=== PATIENT | male | born 1985 | race Caucasian/White ===

== ENCOUNTER 2024-07-21 00:02 | Inpatient (IN) | payer SELFPAY ==
[~2024-07-21] VITALS: Ht 167.6 cm; Wt 81.4 kg
[2024-07-21 00:30] LABS: BASOPHILS % 1.1 % (0.0-2.0); HEMATOCRIT. 34.5 % (42.0-52.0); HEMOGLOBIN. 11.2 g/dL (14.0-18.0); LYMPHOCYTES % 47.4 % (20.0-50.0); MEAN CORPUSCULAR HGB CONC 32.6 g/dL (31.0-37.0); MEAN CORPUSCULAR VOLUME 79.8 fL (80.0-94.0); MEAN PLATELET VOLUME 7.7 fl (7.4-10.4); MONOCYTES % 6.3 % (2.0-8.0); NEUTROPHILS % 44.2 % (40.0-76.0); PLATELET 467 x1000/uL (130-400); RED BLOOD CELL COUNT 4.32 mill/uL (4.7-6.1); RED CELL DISTRIBUTION WIDTH 15.1 % (11.6-14.6); WHITE BLOOD COUNT 7.4 x1000/uL (4.5-11.0)
[2024-07-21 00:31] LABS: DIFFERENTIAL COMMENT 1
[2024-07-21 00:34] LABS: CHLORIDE 110 mEq/L (98-107); POTASSIUM 3.8 mEq/L (3.5-5.1); SODIUM 143 mEq/L (136-145)
[2024-07-21 00:35] LABS: CARBON DIOXIDE 21 mEq/L (21-32)
[2024-07-21 00:36] LABS: CALCIUM 9.1 mg/dL (8.7-10.4)
[2024-07-21 00:39] LABS: PARTIAL THROMBOPLASTIN TIME 26.5 sec (23.4-31.0); PROTHROMBIN TIME 10.8 sec (9.6-11.0)
[2024-07-21 00:40] LABS: CREATININE 0.9 mg/dL (0.6-1.3); GLUCOSE 104 mg/dL (70-105); UREA NITROGEN BLOOD 8 mg/dL (9-23)
[2024-07-21 00:41] LABS: TROPONIN I HIGH SENSITIVITY 4 ng/L (3.0-53)
[2024-07-21] MEDS: ASPIRIN 325MG EC TABLET PO ONE (00:56)
[2024-07-21 02:36] LABS: ETHANOL BLOOD 185 mg/dL (<10)
[2024-07-21 02:37] LABS: TROPONIN I HIGH SENSITIVITY 4 ng/L (3.0-53)
[2024-07-21] MEDS ORDERED: ACETAMINOPHEN 325MG TABLET PO PRN (09:00)
[2024-07-21] MEDS ORDERED: CLONIDINE 0.1MG TABLET PO PRN (09:00)
[2024-07-21] MEDS ORDERED: ONDANSETRON HCL 4MG/2ML INJ IV PRN (09:00)
[2024-07-21] MEDS ORDERED: MAGNESIUM/ALUMINUM HYDROXIDE/SIMETHICONE 30ML UDC PO PRN (09:00)
[2024-07-21] MEDS: PANTOPRAZOLE SODIUM 40 MG/VIAL IV SCH (09:25)
[2024-07-21] MEDS: ENOXAPARIN 40MG/0.4ML SYR SUBCUT SCH (09:26)
[2024-07-21] MEDS: MVI, ADULT NO.1 10 ML, FOLIC ACID 1 MG, THIAMINE HCL 100 MG in SODIUM CHLORIDE 0.9% 1,0... IV SCH (10:00)
[2024-07-21 12:00] VITALS: BP 125/80; PULSE 61; RESP 20; TEMP 36.55848; O2SAT 97
[2024-07-21 15:19] VITALS: BP 125/80; PULSE 61; RESP 20; TEMP 36.5848
[2024-07-21 16:00] VITALS: BP 131/78; PULSE 62; RESP 20; TEMP 36.28068; O2SAT 98
[2024-07-21] MEDS: KETOROLAC 30MG/ML VIAL IV SCH (16:21)
[2024-07-21 16:28] VITALS: BP 131/78; PULSE 62; RESP 18; TEMP 36.28068; O2SAT 98
[2024-07-21 18:53] LABS: CREATINE KINASE MB FRACTION 1.4 ng/mL (0.5-3.6)
[2024-07-21 20:00] VITALS: BP 122/72; PULSE 62; RESP 20; TEMP 36.83628; O2SAT 97
[2024-07-21] MEDS ORDERED: ZOLPIDEM TARTRATE 5MG TABLET PO PRN (21:00)
[2024-07-21 21:03] LABS: CLARITY URINE CLEAR (CLEAR); COLOR URINE YELLOW (YELLOW); GLUCOSE URINE NEGATIVE (NEGATIVE); KETONES URINE NEGATIVE (NEGATIVE); LEUKOCYTE ESTERASE URINE NEGATIVE (NEGATIVE); NITRITE URINE NEGATIVE (NEGATIVE); OCCULT BLOOD URINE NEGATIVE (NEGATIVE); PH URINE 7.5 (4.5-8.0); PROTEIN URINE TRACE (NEGATIVE); SPECIFIC GRAVITY URINE 1.025 (1.005-1.030)
[2024-07-21 21:17] LABS: *AMPHETAMINES SCREEN URINE NEGATIVE (NEGATIVE)
[2024-07-21 21:18] LABS: *BARBITURATES SCREEN URINE NEGATIVE (NEGATIVE); *BENZODIAZEPINES SCREEN URINE NEGATIVE (NEGATIVE); *COCAINE SCREEN URINE PRESUMPTIVE POSITIVE (NEGATIVE); CANNABINOID URINE SCREEN PRESUMPTIVE POSITIVE (NEGATIVE); ECSTASY MDMA SCREEN URINE NEGATIVE (NEGATIVE); METHADONE URINE SCREEN NEGATIVE (NEGATIVE); OPIATES URINE SCREEN NEGATIVE (NEGATIVE); PHENCYCLIDINE URINE SCREEN NEGATIVE (NEGATIVE)
[2024-07-21 21:39] LABS: BACTERIA URINE 1+; RBC URINE NONE SEEN /hpf (0-2); SQUAMOUS EPITHELIAL CELL URINE RARE /lpf (RARE/1+); WBC URINE 0-2 /hpf (0-2)
[2024-07-21 23:54] LABS: CREATINE KINASE MB FRACTION 1.1 ng/mL (0.5-3.6)
[2024-07-22] VITALS: BP 137/86; PULSE 67; RESP 18; TEMP 36.9474; O2SAT 98
[2024-07-22 04:00] VITALS: BP 120/80; PULSE 65; RESP 18; TEMP 37.16964; O2SAT 99
[2024-07-22 07:59] VITALS: BP 125/78; PULSE 68; RESP 18; TEMP 36.33624; O2SAT 100
[2024-07-22 08:14] LABS: CALCIUM 9.5 mg/dL (8.7-10.4); CHLORIDE 106 mEq/L (98-107); POTASSIUM 4.2 mEq/L (3.5-5.1); SODIUM 138 mEq/L (136-145)
[2024-07-22 08:15] LABS: CARBON DIOXIDE 22 mEq/L (21-32)
[2024-07-22 08:20] LABS: CREATININE 0.8 mg/dL (0.6-1.3); GLUCOSE 87 mg/dL (70-105); UREA NITROGEN BLOOD 15 mg/dL (9-23)
[2024-07-22 08:22] LABS: DIFFERENTIAL COMMENT 0; EOSINOPHILS % 3.2 % (0.0-5.0); HEMATOCRIT. 35.8 % (42.0-52.0); HEMOGLOBIN. 11.4 g/dL (14.0-18.0); LYMPHOCYTES % 30.3 % (20.0-50.0); MEAN CORPUSCULAR HEMOGLOBIN 25.1 pg (28.0-32.0); MEAN CORPUSCULAR HGB CONC 31.8 g/dL (31.0-37.0); MEAN CORPUSCULAR VOLUME 79.1 fL (80.0-94.0); MEAN PLATELET VOLUME 8.5 fl (7.4-10.4); NEUTROPHILS % 57.5 % (40.0-76.0); PLATELET 432 x1000/uL (130-400); RED BLOOD CELL COUNT 4.53 mill/uL (4.7-6.1); WHITE BLOOD COUNT 7.6 x1000/uL (4.5-11.0)
[2024-07-22] MEDS ORDERED: THIA100T72 MT (09:16)
[2024-07-22 09:22] VITALS: BP 125/78; PULSE 86; TEMP 97.4; O2SAT 99
[2024-07-22 10:00] VITALS: BP 125/78; PULSE 86; RESP 18
== END 2024-07-22 10:40 | disposition home or self-care (01) | DRG 203 ==
LOC: ER 00:17 → 7WST 01:31
PROVIDERS: ADMIT Internal Medicine; ATTEND Internal Medicine
DX: R07.89 Other chest pain (principal); F10.229 Alcohol dependence with intoxication, unspecified; F14.10 Cocaine abuse, uncomplicated; I10 Essential (primary) hypertension; Y90.6 Blood alcohol level of 120-199 mg/100 ml; Z79.899 Other long term (current) drug therapy
CPT/HCPCS: 36415; 71045; 71250; 80048; 80305; 80320; 81003; 82550; 82553; 83880; 84484; 85025; 93005; 93306; 93970; 99285; J1650; J1885; J2470; J3411; J3490; J7030; G0480